=== PATIENT | female | born 1975 | race Caucasian/White ===

== ENCOUNTER 2016-07-16 23:12 | Emergency (ER) | payer OTHER ==
[2016-07-16 23:19] VITALS: RESP 16
--- NOTE | 2016-07-16 23:36 | EDPHY ---
H & P Stated Complaint: 12/15 due date- 18 weeks preg. not feeling fetus move for 7 days HPI/ROS: HPI CHIEF COMPLAINT: "I havent felt my baby move in 7 Days" HISTORY OF PRESENT ILLNESS: This patient otherwise healthy 40-year-old female she presents emergency room by private vehicle with her she is 18 weeks , she is from [place] she is visiting [place] for vacation she is due to go back to present on July 23. She presents emergency room stating that she has not felt her baby move in 7 days. She denies any significant abdominal pain, abdominal cramping, vaginal bleeding, vaginal discharge, urinary symptoms or back pain. She is just concerned that she has not felt the baby move and she has felt at moving the past. Upon arrival here in emergency room she did have heart tones performed upon arrival she has a heart rate by bedside exam of 150. Her abdomen is nontender is a gravid uterus up to the umbilicus. Consistent with 18-19 weeks. This is her 2nd she does have living twins. I explained the patient will do a limited ultrasound and if this is normal she can be discharged from the emergency room she has no other complaints. Past Medical History: No significant medical history Past Surgical History: No significant surgical history Social History: Denies daily use of drugs alcohol tobacco products, lives in [place] Family History: Noncontributory ROS REVIEW OF SYSTEMS: A comprehensive 10 point review of systems is otherwise negative aside from elements mentioned in the history of present illness. Exam Constitutional triage nursing summary reviewed, vital signs reviewed, awake/ alert. Eyes normal conjunctivae and sclera, EOMI, PERRLA. HENT normal inspection, atraumatic, moist mucus membranes, no epistaxis, neck supple/ no meningismus, no raccoon eyes. Respiratory clear to auscultation bilaterally, normal breath sounds, no respiratory distress, no wheezing. Cardiovascular rate normal, regular rhythm, no murmur, no edema, distal pulses normal. Gastrointestinal gravid uterus umbilicus region, nontender, soft, non-tender, no rebound, no guarding, normal bowel sounds, no distension, no pulsatile mass. Genitourinary no CVA tenderness. Musculoskeletal no midline vertebral tenderness, full range of motion, no calf swelling, no tenderness of extremities, no meningismus, good pulses, neurovascularly intact. Skin pink, warm, & dry, no rash, skin atraumatic. Neurologic awake, alert and oriented x 3, AAOx3, moves all 4 extremities equally, motor intact, sensory intact, CN II-XII intact, normal cerebellar, normal vision, normal speech. Psychiatric normal mood/affect. Heme/Lymph/Immune no lymphadenopathy. Differential Diagnosis: demise, normal progression of Medical Decision Making:Plan for this patient heart tones, and then ultrasound abdomen for evaluation. Re-evaluation: 1212AM: Patient's ultrasound shows a normal healthy baby, with good movement good heart activity, good amniotic fluid index. I have updated the family at bedside about this. They are happy with this news. She has no other complaints specifically denies abdominal pain or vaginal bleeding she would like to be discharged from the emergency room. Source: Patient - Personal History LMP (Females 10-55): Current Tetanus/Diphtheria Vaccine: Unsure Current Tetanus Diphtheria and Acellular Pertussis (TDAP): Unsure - Medical/Surgical History Hx Asthma: No Hx Chronic Respiratory Disease: No Hx Diabetes: No Hx Cardiac Disease: No Hx Renal Disease: No Hx Cirrhosis: No Hx Alcoholism: No Hx HIV/AIDS: No Hx Splenectomy or Spleen Trauma: No Other PMH: denies - Social History Smoking Status: Never smoked Constitutional: Initial Vital Signs Temperature (C) 36.4 C 07/16/16 23:14 Heart Rate 99 07/16/16 23:14 Respiratory Rate 16 07/16/16 23:14 Blood Pressure 120/71 07/16/16 23:14 O2 Sat (%) 96 07/16/16 23:14 O2 Delivery Mode Room Air Allergies/Adverse Reactions: No Known Allergies Allergy (Unverified 07/16/16 23:19) Home Medications: Medication Instructions Recorded NK [No Known Home Meds] 07/16/16 Departure - Departure Disposition: Home, Routine, Self-Care Clinical Impression: Qualifiers: Weeks of gestation: 18 weeks Qualified Code(s): Z3A.18 - 18 weeks gestation of Condition: Good Instructions: (ED) Additional Instructions: 1. Your ultrasound was normal today. 2. Return emergency room if you have any further symptoms questions or concerns including abdominal pain or vaginal bleeding. Referrals: NONE *PRIMARY CARE P,. [Primary Care Provider] - As per Instructions
[2016-07-17 00:27] VITALS: BP 111/71; PULSE 92; TEMP 98.1; O2SAT 97
== END 2016-07-17 00:25 | disposition home or self-care (01) ==
DX: O36.8120 Decreased fetal movements, second trimester, not applicable or unspecified (principal); Z3A.18 18 weeks gestation of pregnancy